=== PATIENT | female | born 1985 | race Caucasian/White ===

== ENCOUNTER 2017-10-03 17:00 | Inpatient (IN) | payer OTHER ==
[2017-10-03] VITALS: BP 115/75
[~2017-10-03] VITALS: Ht 152.4 cm; Wt 73.5 kg
[~2017-10-03 17:00] MED LIST: ACETAMINOPHEN325 M1 PO; ALPRAZOLAM 0.50.5 MG; ASPIRIN EC81 M1; AZITHROMYCIN 2250 MG PO; BACTRIM DS TAB1 EACH PO; BIRTH CONTROL; CLONAZEPAM; FIRST-PROGESTE100 MG; PERCOCET 5-3251 EACH PO; PHENERGAN25 M2 RC; PRENATAL; PYRIDIUM200 MG PO; XANAX 0.5 MG0.5 M1 PO
[2017-10-03 17:02] VITALS: BP 128/70
[2017-10-03] MEDS ORDERED: XANAX 0.5 MG0.5 MG PO (17:06)
[2017-10-03] MEDS ORDERED: FLEXERIL PO (17:06)
[2017-10-03 18:07] LABS: ABSOLUTE LYMPHOCYTES 1.9 thou/uL (0.8-5.3); ABSOLUTE MONOCYTES 0.4 thou/uL (0.0-1.2); ABSOLUTE NEUTROPHILS 7.5 thou/uL (1.6-8.1); BASOPHILS 0.4 %; LYMPHOCYTES 19.7 %; MCHC 33.3 g/dL (28.0-37.0); MCV 87.2 fL (80.0-100.0); MONOCYTES 4.2 %; MPV 8.8 fl. (7.2-11.1); NUCLEATED RBCS 0 /100WBC; PLATELET COUNT* 266 thou/uL (150-400); POLYS 75.7 %; RBC 4.47 mil/uL (4.20-5.00); RDW-CV 14.2 % (10.5-14.5); WBC 9.8 thou/uL (4.0-11.0)
[2017-10-03 18:15] LABS: ANION GAP 7 mmol/L (7-16); BUN 8 mg/dL (7-18); CALCIUM 9.3 mg/dL (8.5-10.1); CHLORIDE 102 mmol/L (98-107); CO2 28 mmol/L (21-32); CREATININE 0.8 mg/dL (0.6-1.3); GLUCOSE 99 mg/dL (70-99); SODIUM 137 mmol/L (136-145)
[2017-10-03 18:26] LABS: ALBUMIN 3.9 g/dL (3.4-5.0); ALKALINE PHOSPHATASE 84 U/L (46-116); SGOT 19 U/L (15-37); SGPT 14 U/L (30-65); TOTAL BILIRUBIN 0.6 mg/dL (<0.1-1.0); TROPONIN-I LEVEL <0.06 ng/mL (<0.06)
[2017-10-03 18:26] LABS: URINE BILIRUBIN NEGATIVE (Negative); URINE BLOOD TRACE (Negative); URINE CLARITY CLEAR; URINE COLOR YELLOW; URINE GLUCOSE-RANDOM NEGATIVE (Negative); URINE KETONES 1+ (Negative); URINE LEUKOCYTES-REFLEX NEGATIVE (Negative); URINE NITRITE-REFLEX NEGATIVE (Negative); URINE PROTEIN NEGATIVE (Negative); URINE UROBILINOGEN 0.2 E.U./dl (0.2-1.0)
[2017-10-03 18:35] LABS: AMP/METHAMP Negative (Negative); BACTERIA-REFLEX 1-9 Few /HPF (None Seen); BARBITURATES Negative (Negative); BENZODIAZEPINES POSITIVE (Negative); CASTS None Seen /LPF (None Seen); COCAINE Negative (Negative); CRYSTALS None Seen /LPF (None Seen); METHADONE Negative (Negative); OPIATES Negative (Negative); PCP Negative (Negative); SQUAMOUS 4-10 Moderate /LPF (0-3); THC POSITIVE (Negative); URINE RBC 3-10 Few /HPF (0-2); URINE WBC-REFLEX 0-5 Rare /HPF (0-5)
[2017-10-03 20:00] VITALS: BP 115/75
[2017-10-03 20:19] VITALS: BP 128/70
[2017-10-04] VITALS (7 sets, daily range): BP systolic 96–116; BP diastolic 50–68
[2017-10-04 04:43] LABS: HEMATOCRIT 39.1 % (37.0-47.0); HEMOGLOBIN 12.7 gm/dL (12.0-15.0); MCH 28.7 pg (26.0-34.0); MCHC 32.6 g/dL (28.0-37.0); MCV 88.2 fL (80.0-100.0); MPV 8.8 fl. (7.2-11.1); RBC 4.43 mil/uL (4.20-5.00); RDW-CV 14.1 % (10.5-14.5); WBC 9.7 thou/uL (4.0-11.0)
[2017-10-04 05:12] LABS: CALCIUM 9.2 mg/dL (8.5-10.1); CREATININE 0.7 mg/dL (0.6-1.3); MAGNESIUM 2.1 mg/dL (1.8-2.4)
[2017-10-04 05:15] LABS: POTASSIUM 4.3 mmol/L (3.5-5.1)
--- NOTE | 2017-10-04 10:32 | EKG ---
[place] [address] ELECTROCARDIOGRAM REPORT Name: LUZ DUGAN Room: [address] ADM IN M.R.#: [id number] Admission: 10/03/17 Attend Phys: Elliott Daniels, Discharge: Date of : 85 Report #: [id number] THIS REPORT FOR: //name// [facility] ED Test Date: 2017-10-03 Test Time: 17:21:23 Pat Name: LUZ DUGAN Department: Room: [facility] Gender: F Lavatory Attendant: DOT : 1985 Requested By: Basil Gray Order Number: [id number] MD: Bob Porras Measurements Intervals [place] Rate: 81 P: 75 SC: 128 QRS: 45 QRSD: 95 T: 268 QT: 358 QTc: 416 Interpretive Statements Sinus rhythm Borderline repolarization abnormality Baseline wander in lead(s) V1,V2,V3,V4,V5,V6 Compared to ECG 11/08/2011 21:57:16 T-wave abnormality no longer present Electronically Signed On 10-04-2017 10:32:13 CDT by Bob Porras [email or web address] <ELECTRONICALLY SIGNED> By: Griselda Porras MD, [facility] 10/04/17 1032 1721 1721 Griselda Porras MD, [facility] /EPI
[2017-10-05] VITALS: BP 107/58
[2017-10-05 04:00] VITALS: BP 109/69
[2017-10-05 08:00] VITALS: BP 99/63
--- NOTE | 2017-10-05 08:35 | CON ---
[address] [address] CONSULTATION Name: LUZ DUGAN Room: [address] IN .R.#: [id number] Admission: 10/03/17 Attend Phys: Elliott Daniels, Discharge: Date of : 85 Report #: [id number] THIS REPORT FOR: //name// CC: FAM unknown Elliott Daniels DATE OF SERVICE: 10/03/2017 HISTORY OF PRESENT ILLNESS: This is a 31-year-old female patient who was evaluated by me for the seizure. The patient does not remember anything about the seizure. The father witnessed it and indicated that it was a grand mal seizure with tongue biting. It came out of the blue. She was confused after that. She bit her tongue during this episode. She had a question of seizure activity about a week ago. REVIEW OF SYSTEMS: Indicate that she is taking tramadol for about 4 months. It is for the back pain as well as some shoulder injury. She was not taking any narcotics before that. She had a history of GI problems and some ankle sprains and gallbladder problems in the past. She works at a desk job. I carried out, the 14-point review of systems. It was mostly unremarkable except as described above. PAST MEDICAL HISTORY: Negative for seizure, except for an episode about a week ago. FAMILY HISTORY: Negative for congenital epilepsy. SOCIAL HISTORY: She indicates she does not smoke or drink any alcohol. The patient drinks alcohol except about 2-3 beers per week. PHYSICAL EXAMINATION: NEUROLOGICAL: Indicate she is alert, responsive and able to follow simple and complex command. Her speech, concentration, fund of knowledge and memory is at her baseline. Cranial nerve examination 2 through 12 was unremarkable. She has a symmetrical strength, sensation, reflexes and tone in all 4 extremities. There is no meningeal sign. There is no carotid bruit. There is no papilledema. CARDIAC: Examination is unremarkable. LUNGS: No respiratory difficulty. GENERAL: She is reasonably well-developed individual who does not have any dysmorphic features of eyes, ears and face. VITAL SIGNS: Her blood pressure is 106/56, respiration is 20, pulse is 56 and temperature 36.7. LABORATORY DATA: Her white count is 9.7. Sodium is 140. [place] [address] CONSULTATION Name: LUZ DUGAN Room: [address] IN [facility].#: [id number] Admission: 10/03/17 Attend Phys: Elliott Daniels, Discharge: Date of : 85 Report #: [id number] RADIOLOGICAL DATA: She did have a CT scan of the head, which was unremarkable. Her MRI and EEG is pending. IMPRESSION: 1. Seizure disorder. 2. Tramadol use. RECOMMENDATIONS: I had a long talk with the patient and the family. I discussed with them that tramadol is known to cause seizure, but I am not sure whether that is only etiology or whether she has any predisposition. I discussed with them options available including giving her a trial with anticonvulsant or just taking her off tramadol and see if it happens again. After discussing all the options with her, the plan is to get an MRI of the brain done and an EEG done and if that is normal, then the patient would like to stay without medication. She should not take tramadol or any other epileptiform medication. She needs to take seizure precautions and those were discussed with her. She cannot drive for at least 6 months and should stay under supervision in case the seizure happens again. I did discuss with her the steps she can take to decrease her chances of having a seizure. Thank you very much for this referral. <ELECTRONICALLY SIGNED> By: Richi Nolasco MD 10/05/17 0835 1044 [id number] Nolasco MD /nt
--- NOTE | 2017-10-05 08:35 | EEG ---
[address] [address] EEG STUDY REPORT Name: LUZ DUGAN Room: [address] IN .R.#: [id number] Admission: 10/03/17 Attend Phys: Elliott Daniels, Discharge: Date of : 85 Report #: [id number] THIS REPORT FOR: //name// CC: FAM unknown Elliott Jeffhuyen DATE OF SERVICE: 10/04/2017 This patient is being evaluated for the possibility of seizure. EEG was done by placing the electrode by standard 10-20 system of electrode placement. Both referential and sequential montages were used for recording. Background activity in this patient's EEG is about 11 Hz and 40 microvolt. It is a symmetrical activity. The patient went to sleep that is associated with bilaterally symmetrical sleep spindle and vertex sharp waves. Photic stimulation is unremarkable. Throughout the record, no active epileptiform activity was noticed. IMPRESSION: This patient's electroencephalogram is unremarkable and did not reveal any definite electrophysiological evidence for seizure. <ELECTRONICALLY SIGNED> By: Richi Nolasco MD 10/05/17 0835 1808 [id number] Nolasco MD /nt
[2017-10-05 11:23] VITALS: BP 109/69
== END 2017-10-05 12:20 | disposition home or self-care (01) | DRG 101 ==
LOC: M.ERS 17:00 → M.TBA-ER 18:46 → M.2W 18:46
PROVIDERS: Emergency Medicine Emergency Medical Services; ADMIT Family Medicine
DX: G40.909 Epilepsy, unspecified, not intractable, without status epilepticus (principal); E87.6 Hypokalemia; F12.10 Cannabis abuse, uncomplicated; G89.29 Other chronic pain; Z79.899 Other long term (current) drug therapy; Z88.8 Allergy status to other drugs, medicaments and biological substances; Z71.51 Drug abuse counseling and surveillance of drug abuser; W18.30XA Fall on same level, unspecified, initial encounter; Y93.89 Activity, other specified; Y92.89 Other specified places as the place of occurrence of the external cause; Y99.8 Other external cause status